=== PATIENT | female | born 1960 | race Caucasian/White ===

== ENCOUNTER 2017-02-03 20:43 | Emergency (ER) | payer OTHER ==
[~2017-02-03 20:43] MED LIST: ADVIL200 MG PO; ASPIRIN EC325 MG PO; BYSTOLIC10 MG PO; LAXATIVE OF CHOICE; MULTIVITAMINS1 EAC1 PO; PERCOCET 7.5-31 EACH PO; TRIAMTERENE-HC1 EACH PO; VITAMIN B-121000 MCG SL; VITAMIN D1000 UNI1 PO
== END 2017-02-03 22:04 | disposition home or self-care (01) ==
LOC: FER 20:43
DX: J18.9 Pneumonia, unspecified organism (principal); J45.909 Unspecified asthma, uncomplicated; I10 Essential (primary) hypertension; M81.0 Age-related osteoporosis without current pathological fracture; Z88.7 Allergy status to serum and vaccine; Z88.8 Allergy status to other drugs, medicaments and biological substances; Z79.1 Long term (current) use of non-steroidal anti-inflammatories (NSAID); Z79.899 Other long term (current) drug therapy; Z82.49 Family history of ischemic heart disease and other diseases of the circulatory system; Z83.3 Family history of diabetes mellitus
CPT/HCPCS: 71020; 87804; 87899; 99283

== ENCOUNTER 2021-05-16 00:45 | Emergency (ER) | payer OTHER ==
[~2021-05-16] VITALS: Ht 167.6 cm; Wt 117.9 kg
[2021-05-16 02:19] LABS: BASOPHIL 0.3 % (0-2); EOSINOPHIL 0.2 % (0-5); HGB 14.9 g/dl (12.5-16.0); LYMPHOCYTE 9.4 % (15-48); MCH 29.4 pg (25.0-31.0); MCHC 33.1 g/dL (32.0-36.0); MCV 88.9 fL (78.0-100.0); MONOCYTE 6.1 % (0-12); MPV 9.9 fL (6.0-9.5); NEUTROPHIL 83.2 % (41-80); NRBC 0; PLT 286 K/uL (150-400); RBC 5.06 M/uL (4.20-5.40); RDW 13.2 % (11.5-14.0); WBC 21.2 K/uL (4.0-10.5)
[2021-05-16 02:32] LABS: BILIRUBIN - TOTAL 0.5 mg/dL (0.2-1.0); BUN/CREAT RATIO (CALC) 24.2 RATIO; CREATININE 0.62 mg/dL (0.51-0.95); POTASSIUM 4.4 mmol/L (3.5-5.1)
[2021-05-16 02:36] LABS: LACTIC ACID 2.3 mmol/L (0.4-1.9)
[2021-05-16 03:01] LABS: CORONAVIRUS 2019 SARS-COV-2 NEGATIVE (NEGATIVE); INFLUENZA A NAA NEGATIVE (NEGATIVE)
[2021-05-16 03:46] LABS: BILIRUBIN NEGATIVE (NEGATIVE); BLOOD NEGATIVE Ery/uL (NEGATIVE); CLARITY CLEAR (CLEAR); COLOR YELLOW (YELLOW); GLUCOSE (U) NORMAL (NORMAL); LEUKOCYTES TRACE Leu/uL (NEGATIVE); NITRITE NEGATIVE (NEGATIVE); PROTEIN NEGATIVE (NEGATIVE); SPECIFIC GRAVITY >=1.030 (1.001-1.030); UROBILINOGEN 0.2 mg/dL (0.2-1.0); pH 5.5 (5.0-9.0)
[2021-05-16 03:51] LABS: BACTERIA 2+
[2021-05-16] MEDS ORDERED: ONDANSETRON ODT4 MG SL (07:42)
[2021-05-16] MEDS ORDERED: BACTRIM DS TAB1 EACH PO (07:42)
== END 2021-05-16 08:25 | disposition home or self-care (01) ==
LOC: FER 00:45
PROVIDERS: Emergency Medicine Emergency Medical Services
DX: K52.9 Noninfective gastroenteritis and colitis, unspecified (principal); N30.00 Acute cystitis without hematuria; I10 Essential (primary) hypertension; Z20.822 Contact with and (suspected) exposure to COVID-19; Z90.49 Acquired absence of other specified parts of digestive tract; Z88.3 Allergy status to other anti-infective agents; Z88.7 Allergy status to serum and vaccine
CPT/HCPCS: 36415; 71045; 80053; 81001; 83605; 83690; 84145; 84484; 85025; 87040; J1885; J2270; J2405; J2543; J7030; U0002